=== PATIENT | male | born 1990 | race African-American/Black ===

== ENCOUNTER 2016-12-14 00:53 | Emergency (ER) | payer OTHER ==
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
[2016-12-14 01:08] VITALS: BP 155/90; PULSE 76; TEMP 98.2; BMI 47.8
== END 2016-12-14 01:24 | disposition home or self-care (01) ==
LOC: FER 00:53
PROC: 2W3JX1Z Immobilization of Right Finger using Splint (ICD-10-PCS; principal; 2016-12-14)
DX: S62.354A Nondisplaced fracture of shaft of fourth metacarpal bone, right hand, initial encounter for closed fracture (principal); X58.XXXA Exposure to other specified factors, initial encounter; Y93.89 Activity, other specified; Y92.159 Unspecified place in reform school as the place of occurrence of the external cause; Y99.0 Civilian activity done for income or pay
CPT/HCPCS: 73130-TC-RT; 99282-25

== ENCOUNTER 2017-05-19 22:18 | Emergency (ER) | payer OTHER ==
[2017-05-19 22:34] VITALS: BP 150/100; PULSE 90; TEMP 98.7; BMI 45.0
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
[2017-05-19] MEDS ORDERED: DIPHTH,PERTUSS(ACELL),TET 0.5 ML DISP.SYRIN IM ONE (22:39)
[2017-05-19] MEDS ORDERED: AMOX TR/POT CLAV 875MG/125MG TABLETS (FP) PO ONE (23:33)
[2017-05-19] MEDS ORDERED: HIV POST EXPOSURE PROPHYLAXIS KIT NR ONE (23:37)
[2017-05-19] MEDS ORDERED: AMOX TR/POT CLAV 875MG/125MG TABLETS (FP) ONE (23:38)
[2017-05-19] MEDS ORDERED: HIV POST EXPOSURE PROPHYLAXIS KIT PO ONE (23:41)
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
[2017-05-20 01:14] LABS: HIV 1 & 2 AB NEGATIVE; HIV 1 AGp24 NEGATIVE
== END 2017-05-20 00:13 | disposition home or self-care (01) ==
LOC: FER 22:18
PROC: 3E0234Z Introduction of Serum, Toxoid and Vaccine into Muscle, Percutaneous Approach (ICD-10-PCS; principal; 2017-05-19)
DX: S51.851A Open bite of right forearm, initial encounter (principal); Y04.1XXA Assault by human bite, initial encounter; X58.XXXA Exposure to other specified factors, initial encounter; Y93.89 Activity, other specified; Y92.159 Unspecified place in reform school as the place of occurrence of the external cause; Y99.0 Civilian activity done for income or pay
CPT/HCPCS: 36415; 80074; 87389; 90715; 99281-25

== ENCOUNTER 2019-06-08 08:34 | Emergency (ER) | payer OTHER ==
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
[2019-06-08 08:55] VITALS: BP 160/97; PULSE 75; TEMP 97.8; BMI 50.0
[2019-06-08 10:42] LABS: EPITHELIAL CELLS FEW /hpf
== END 2019-06-08 10:33 | disposition home or self-care (01) ==
LOC: FER 08:34
DX: S83.92XA Sprain of unspecified site of left knee, initial encounter (principal); S53.402A Unspecified sprain of left elbow, initial encounter; V43.52XA Car driver injured in collision with other type car in traffic accident, initial encounter; Y93.89 Activity, other specified; Y92.410 Unspecified street and highway as the place of occurrence of the external cause; Z87.891 Personal history of nicotine dependence
CPT/HCPCS: 73070-TC-LT-FY; 73562-TC-LT-FY; 81003; 81015; 99282-25

== ENCOUNTER 2022-08-29 20:05 | Emergency (ER) | payer OTHER ==
[2022-08-29] MEDS ORDERED: KETOROLAC TROMETHAMINE 60 MG/2 ML VIAL IM ONE (20:18)
[2022-08-29] MEDS ORDERED: predniSONE 20 MG TABLET (UD) PO ONE (20:19)
[2022-08-29] MEDS ORDERED: KETOROLAC TROMETHAMINE 60 MG/2 ML VIAL ONE (20:21)
[2022-08-29] MEDS ORDERED: predniSONE 20 MG TABLET (UD) ONE (20:21)
[2022-08-29 20:28] VITALS: BP 180/117; PULSE 100; RESP 20; TEMP 98.4; BMI 50.6
[2022-08-29] MEDS ORDERED: METHOCARBAMOL 500 MG TABLET PO ONE (20:31)
[2022-08-29] MEDS ORDERED: METHOCARBAMOL 500 MG TABLET ONE (20:38)
== END 2022-08-29 20:54 | disposition home or self-care (01) ==
LOC: FER 20:05
PROC: 3E0233Z Introduction of Anti-inflammatory into Muscle, Percutaneous Approach (ICD-10-PCS; principal; 2022-08-29)
DX: M54.32 Sciatica, left side (principal)
CPT/HCPCS: 99284-25

== ENCOUNTER 2024-03-10 19:18 | Emergency (ER) | payer OTHER ==
[2024-03-10 19:32] VITALS: BP 180/102; PULSE 88; RESP 20; TEMP 98; BMI 61.2
[2024-03-10] MEDS ORDERED: KETOROLAC TROMETHAMINE 60 MG/2 ML VIAL ONE (19:46)
[2024-03-10] MEDS: KETOROLAC TROMETHAMINE 60 MG/2 ML VIAL IM ONE (19:49)
== END 2024-03-10 20:08 | disposition home or self-care (01) ==
LOC: FER 19:18
PROC: 3E0133Z Introduction of Anti-inflammatory into Subcutaneous Tissue, Percutaneous Approach (ICD-10-PCS; principal; 2024-03-10)
DX: M25.522 Pain in left elbow (principal); M54.50 Low back pain, unspecified; M79.672 Pain in left foot
CPT/HCPCS: 99284-25